=== PATIENT | male | born 1945 ===

== ENCOUNTER 2024-03-14 17:05 | Inpatient (IN) | payer MEDICARE ==
[2024-03-14 18:38] VITALS: BMI 33.3
[2024-03-14] MEDS ORDERED: Acetaminophen 325 MG TAB PO PRN (20:43)
[2024-03-14] MEDS ORDERED: Ondansetron ODT 4 MG TAB PO PRN (20:43)
[2024-03-14] MEDS ORDERED: Enoxaparin 120 MG/0.8 ML SYRINGE SC SCH (21:00)
[2024-03-14 21:42] LABS: INR-International Normal Ratio 1.1; PTT 33.1 sec (22.9-36.1); Prothrombin Time 14.5 sec (12.0-14.7)
[2024-03-14] MEDS: Metoprolol Tartrate 25 MG TAB PO SCH (22:38)
[2024-03-14] MEDS: Furosemide 40 MG (4 mL) VIAL SLOW IVP SCH (22:39)
[2024-03-15] MEDS: Enoxaparin 120 MG/0.8 ML SYRINGE SC SCH ×2 (02:52→14:10)
[2024-03-15 05:22] LABS: #Basophils 0.03 10x3/uL (0.0-0.2); %Basophils 0.5 % (0.0-1.0); %Eosinophils 0.8 % (0.0-10.0); %Monocytes 15.8 % (0.0-10.0); %Neutrophils 64.1 % (42.0-75.0); Hematocrit 34.2 % (42.0-52.0); Hemoglobin 11.6 g/dL (14.0-18.0); Mean Corpuscular HGB CONC 33.9 g/dL (32.0-36.0); Mean Corpuscular Hemoglobin 35.3 pg (27.0-31.0); Mean Platelet Volume 9.5 fL (7.4-10.4); Platelet Count 195 10x3/uL (130-400); RBC Distribution Width 12.6 % (11.5-14.5); Red Blood Cell (RBC) Count 3.29 mill/uL (4.70-6.10)
[2024-03-15] MEDS ORDERED: Cyclobenzaprine 10 MG TAB PO PRN (06:19)
[2024-03-15 06:20] LABS: ALT (SGPT) 12 U/L (Less than 45); AST (SGOT) 21 U/L (11-34); Albumin 3.5 g/dL (3.1-4.5); Alkaline Phosphatase 49 U/L (40-110); Anion Gap 17 mmol/L (10-20); BUN (Urea Nitrogen) 36 mg/dL (8.4-25.7); Bilirubin, Total 0.7 mg/dL (0.3-1.2); Calc. Creatinine Clearance 70 mL/min (70-130); Calcium 9.3 mg/dL (7.8-10.44); Carbon Dioxide 22 mmol/L (23-31); Chloride 108 mmol/L (98-107); Estimated GFR 51; Globulin 2.7 g/dL (2.4-3.5); Glucose 85 mg/dL (83-110); Potassium 3.8 mmol/L (3.5-5.1); Protein, Total 6.2 g/dL (5.8-8.1); Sodium 143 mmol/L (136-145)
[2024-03-15] MEDS ORDERED: Enoxaparin 120 MG/0.8 ML SYRINGE SC SCH ×2 (09:00)
[2024-03-15] MEDS ORDERED: Enoxaparin 100 MG (1 mL) SYRINGE SC SCH (09:00)
[2024-03-15] MEDS: Terbinafine 250 MG TAB PO SCH (09:15)
[2024-03-15] MEDS: Furosemide 20 MG TAB PO SCH (09:15)
[2024-03-15] MEDS: Potassium Chloride 10 MEQ TAB PO SCH (09:15)
[2024-03-15] MEDS: Metolazone 5 MG TAB PO SCH (09:15)
[2024-03-15] MEDS: Metoprolol Tartrate 25 MG TAB PO SCH (09:15)
[2024-03-15] MEDS: Clopidogrel Bisulfate 75 MG TAB PO SCH (09:15)
[2024-03-15] MEDS: Aspirin 325 MG TAB PO SCH (09:19)
[2024-03-15] MEDS: Aspirin 81 mg Enteric Coated Tablet PO SCH (09:24)
[2024-03-15 10:53] LABS: Magnesium 1.9 mg/dL (1.6-2.6)
[2024-03-15] MEDS: Furosemide 100 MG (10 mL) VIAL SLOW IVP SCH (11:50)
[2024-03-15] MEDS: Potassium Chloride 20 MEQ TAB PO SCH ×2 (11:50→17:16)
[2024-03-15] MEDS: Empagliflozin 10 MG TAB PO SCH (11:50)
[2024-03-15] MEDS: Amiodarone 200 MG TAB PO SCH ×3 (11:50→20:47)
[2024-03-15] MEDS: Magnesium Sulfate In Water 4 GM in Premix 1 BAG IVPB SCH (13:39)
[2024-03-15] MEDS ORDERED: Furosemide 40 MG (4 mL) VIAL SLOW IVP SCH (14:00)
[2024-03-15] MEDS: Furosemide 40 MG (4 mL) VIAL SLOW IVP SCH (17:15)
[2024-03-15] MEDS: Spironolactone 25 MG TAB PO SCH (17:15)
[2024-03-15] MEDS: tiZANidine HCl 4 MG TAB PO SCH (20:47)
[2024-03-15] MEDS: Doxazosin 2 MG TAB PO SCH (20:47)
[2024-03-15] MEDS: Simvastatin 10 MG TAB PO SCH (20:47)
[2024-03-15 21:07] LABS: Anion Gap 18 mmol/L (10-20); BUN (Urea Nitrogen) 48 mg/dL (8.4-25.7); Calc. Creatinine Clearance 58 mL/min (70-130); Carbon Dioxide 23 mmol/L (23-31); Chloride 102 mmol/L (98-107); Estimated GFR 40; Glucose 105 mg/dL (83-110); Potassium 3.9 mmol/L (3.5-5.1); Sodium 139 mmol/L (136-145)
[2024-03-15 22:01] VITALS: BMI 33.3
[2024-03-16 04:06] LABS: #Basophils 0.07 10x3/uL (0.0-0.2); %Basophils 1.2 % (0.0-1.0); %Eosinophils 2.2 % (0.0-10.0); %Lymphocytes 19.6 % (21.0-51.0); %Monocytes 13.6 % (0.0-10.0); %Neutrophils 62.6 % (42.0-75.0); Hematocrit 38.2 % (42.0-52.0); Hemoglobin 12.9 g/dL (14.0-18.0); Mean Corpuscular HGB CONC 33.8 g/dL (32.0-36.0); Mean Corpuscular Hemoglobin 34.9 pg (27.0-31.0); Mean Corpuscular Volume 103.2 fL (78.0-98.0); Mean Platelet Volume 9.4 fL (7.4-10.4); Platelet Count 203 10x3/uL (130-400); RBC Distribution Width 12.5 % (11.5-14.5)
[2024-03-16 04:09] LABS: ALT (SGPT) 17 U/L (Less than 45); AST (SGOT) 25 U/L (11-34); Albumin 3.9 g/dL (3.1-4.5); Alkaline Phosphatase 53 U/L (40-110); Anion Gap 19 mmol/L (10-20); BUN (Urea Nitrogen) 47 mg/dL (8.4-25.7); Bilirubin, Total 0.8 mg/dL (0.3-1.2); Calc. Creatinine Clearance 57 mL/min (70-130); Calcium 9.8 mg/dL (7.8-10.44); Carbon Dioxide 23 mmol/L (23-31); Chloride 100 mmol/L (98-107); Estimated GFR 40; Globulin 2.9 g/dL (2.4-3.5); Glucose 89 mg/dL (83-110); Iron 76 ug/dL (65-175); Protein, Total 6.8 g/dL (5.8-8.1); Sodium 138 mmol/L (136-145)
[2024-03-16 04:13] LABS: Iron 76 ug/dL (65-175); Iron Binding Capacity, Total 311 mcg/dL (261-462)
[2024-03-16] MEDS: Furosemide 40 MG (4 mL) VIAL SLOW IVP SCH (05:57)
[2024-03-16] MEDS ORDERED: Lidocaine 1% PF 5 ML VIAL ONE (08:51)
[2024-03-16] MEDS ORDERED: PROPOFOL 200 MG/20 ML VIAL ONE (08:51)
[2024-03-16] MEDS: Empagliflozin 10 MG TAB PO SCH (10:24)
[2024-03-16] MEDS: Metoprolol Succinate XL 50 MG ER.TAB PO SCH (16:19)
[2024-03-16] MEDS: Apixaban 5 MG TAB PO SCH (20:01)
[2024-03-17 04:23] LABS: #Basophils 0.06 10x3/uL (0.0-0.2); %Basophils 0.7 % (0.0-1.0); %Lymphocytes 11.7 % (21.0-51.0); %Monocytes 12.7 % (0.0-10.0); %Neutrophils 72.1 % (42.0-75.0); Hematocrit 38.8 % (42.0-52.0); Hemoglobin 13.2 g/dL (14.0-18.0); Mean Corpuscular Hemoglobin 35.4 pg (27.0-31.0); Mean Platelet Volume 9.4 fL (7.4-10.4); Platelet Count 208 10x3/uL (130-400); RBC Distribution Width 12.3 % (11.5-14.5); Red Blood Cell (RBC) Count 3.73 mill/uL (4.70-6.10)
[2024-03-17 04:47] LABS: ALT (SGPT) 17 U/L (Less than 45); AST (SGOT) 27 U/L (11-34); Albumin 3.8 g/dL (3.1-4.5); Alkaline Phosphatase 54 U/L (40-110); Anion Gap 16 mmol/L (10-20); BUN (Urea Nitrogen) 45 mg/dL (8.4-25.7); Bilirubin, Total 0.9 mg/dL (0.3-1.2); Calc. Creatinine Clearance 59 mL/min (70-130); Calcium 9.4 mg/dL (7.8-10.44); Carbon Dioxide 23 mmol/L (23-31); Chloride 102 mmol/L (98-107); Estimated GFR 41; Globulin 3.1 g/dL (2.4-3.5); Glucose 97 mg/dL (83-110); Potassium 3.9 mmol/L (3.5-5.1); Protein, Total 6.9 g/dL (5.8-8.1); Sodium 137 mmol/L (136-145)
[2024-03-17] MEDS: Digoxin 0.125 MG TAB PO SCH (08:44)
[2024-03-17] MEDS: Furosemide 40 MG TAB PO SCH (08:44)
[2024-03-17] MEDS: Metoprolol Succinate XL 50 MG ER.TAB PO SCH (08:45)
[2024-03-17] MEDS: Spironolactone 25 MG TAB PO SCH (08:46)
[2024-03-17 15:36] VITALS: BP 110/72; TEMP 98
== END 2024-03-17 16:42 | disposition home or self-care (01) | DRG 309 ==
LOC: 2NO 17:05 → OBSVTOIN 20:43 → 2NO 03-15 15:40
PROVIDERS: ADMIT Family Medicine; ATTEND Family Medicine
PROC: B245ZZ4 Ultrasonography of Left Heart, Transesophageal (ICD-10-PCS; principal; 2024-03-16)
PROC: 5A2204Z Restoration of Cardiac Rhythm, Single (ICD-10-PCS; 2024-03-16)
DX: I48.91 Unspecified atrial fibrillation (principal); I50.30 Unspecified diastolic (congestive) heart failure; L97.829 Non-pressure chronic ulcer of other part of left lower leg with unspecified severity; L97.819 Non-pressure chronic ulcer of other part of right lower leg with unspecified severity; I10 Essential (primary) hypertension; N18.31 Chronic kidney disease, stage 3a; E78.5 Hyperlipidemia, unspecified; F10.90 Alcohol use, unspecified, uncomplicated; I87.2 Venous insufficiency (chronic) (peripheral); D64.9 Anemia, unspecified; Z86.718 Personal history of other venous thrombosis and embolism
CPT/HCPCS: 36415; 80053; 82728; 83540; 83550; 83735; 83880; 85025; 85610; 85730; 92960; 93005; 93010; 93306; 93312; 97139; J1650; J1940; J3475